=== PATIENT | female | born 1990 | race Caucasian/White ===

== ENCOUNTER 2020-12-17 19:19 | Emergency (ER) | payer SELFPAY ==
[2020-12-17 22:37] LABS: Urine Blood Trace-intact (Negative); Urine Glucose Negative (Negative); Urine Protein Negative (Negative); Urine pH 5.5 (5.0-7.0)
[2020-12-17] MEDS ORDERED: KETOROLAC 30 MG/ML INJ ONE (23:51)
[2020-12-17] MEDS ORDERED: CEFTRIAXONE/SWI 1gm 1 GM/10 ML SYR ONE (23:52)
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
[2020-12-18 01:18] VITALS: BP 126/66; TEMP 98.4; O2SAT 99
--- NOTE | 2020-12-18 08:31 | RAD REPORT ---
EXAM DESCRIPTION: RAD - Thoracic Spine Ap/Lat - 12/17/2020 11:36 pm CLINICAL HISTORY: PAIN Radiculopathy COMPARISON: No comparisons FINDINGS: The thoracic spine vertebral body heights and disc spaces are largely maintained. No acute compression fracture. No significant malalignment. IMPRESSION: Negative study.
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
== END 2020-12-18 00:51 | disposition home or self-care (01) ==
LOC: ER 19:19
DX: N30.90 Cystitis, unspecified without hematuria (principal); V49.40XA Driver injured in collision with unspecified motor vehicles in traffic accident, initial encounter; Z91.048 Other nonmedicinal substance allergy status
CPT/HCPCS: 70450; 72070; 72125; 81003; 81025; 96372; 99284; J0696